=== PATIENT | male | born 1970 | race Caucasian/White ===

== ENCOUNTER → 2020-03-09 15:48 | Outpatient (BNVA) | payer OTHER, SELFPAY | PROVIDERS: PCP Internal Medicine; Visit Provider Student in an Organized Health Care Education/Training Program | DX: Z76.89 Persons encountering health services in other specified circumstances (principal) ==

== ENCOUNTER 2020-06-04 08:25 | Outpatient (REF) | payer OTHER, SELFPAY ==
--- NOTE | ~2020-06-04 | XR_ITS ---
EXAMINATION: XR SHOULDER, RIGHT CLINICAL INFORMATION: Rheumatoid arthritis COMPARISON: None TECHNIQUE: AP external rotation, Grashey, scapular Y, and axillary views of the right shoulder. FINDINGS: The bones and soft tissues are normal. No fracture. Glenohumeral and acromioclavicular alignment is anatomic with normal joint space. No abnormal soft tissue calcifications. There are surgical clips in the left lower neck. XR/XR shoulder RT min 2V IMPRESSION: Normal right shoulder.
== END 2020-06-04 08:26 | disposition home or self-care (01) ==
LOC: HO.XRAY 08:25
PROVIDERS: PCP Internal Medicine; Visit Provider Student in an Organized Health Care Education/Training Program
DX: M05.9 Rheumatoid arthritis with rheumatoid factor, unspecified (principal); M32.9 Systemic lupus erythematosus, unspecified; I73.00 Raynaud's syndrome without gangrene; Z86.711 Personal history of pulmonary embolism; Z79.01 Long term (current) use of anticoagulants; Z79.52 Long term (current) use of systemic steroids; Z79.899 Other long term (current) drug therapy
CPT/HCPCS: 73030

== ENCOUNTER 2020-09-01 11:54 | Outpatient (REF) | payer OTHER, SELFPAY ==
[2020-09-01 13:04] LABS: MANUAL DIFF FLAG NO
[2020-09-01 13:10] LABS: Basophils Percent Auto 0.6 % (0-2); Eosinophils Absolute Auto 0.1 X10*3/uL (0.0-0.4); Hematocrit 41.8 % (42-52); Hemoglobin 14.3 g/dl (14.0-18.0); Imm Gran Abs Auto 0.01 X10*3/uL (0.00-0.03); Imm Gran Pct Auto 0.3 % (0.0-0.4); Lymphocytes Absolute Auto 0.8 X10*3/uL (1.2-4.9); Lymphocytes Percent Auto 22.6 % (20-40); Mean Corpuscular HGB Conc 34.2 g/dl (31.0-36.0); Mean Corpuscular Hemoglobin 28.8 pg (27.0-33.0); Mean Corpuscular Volume 84.1 fL (80-98); Mean Platelet Volume 10.1 fL (9.4-12.4); Monocytes Absolute Auto 0.5 X10*3/uL (0.1-1.2); Monocytes Percent Auto 15.4 % (2-11); Neutrophils Percent Auto 57.1 % (45-73); Platelet Count 169 X10*3/uL (160-400); Red Blood Count 4.97 X10*6/uL (4.60-5.80); Red Cell Distribution Width 12.5 % (11.0-16.0); White Blood Count 3.5 X10*3/uL (4.8-10.8)
[2020-09-01 13:17] LABS: Glucose Urine UA NEG (NEG); Leukocyte Esterase Urine NEG (NEG); Nitrite Urine NEG (NEG); Specific Gravity - Urine <= 1.005 (1.005-1.025); Urine Blood NEG (NEG); Urine Ketones NEG (NEG); Urine Protein NEG (NEG-TRACE)
[2020-09-01 13:19] LABS: Appearance Urine CLEAR; Color Urine YELLOW
[2020-09-01 14:00] LABS: RBC Urine 0 /HPF (0); WBC Urine 0 /HPF (0-4)
[2020-09-01 14:06] LABS: Alanine Aminotransferase 116 U/L (0-40); Albumin Level 4.2 g/dL (3.5-5.0); Alkaline Phosphatase 78 U/L (39-117); Anion Gap 12 (12-20); Aspartate Amino Transferase 72 U/L (5-37); Bilirubin Total 0.6 mg/dL (0.0-1.0); Blood Urea Nitrogen 16 mg/dL (9-16); C Reactive Protein 0.32 mg/dL (< or = 0.50); Calcium 9.1 mg/dL (8.4-10.2); Carbon Dioxide 28 mmol/L (22-29); Chloride 101 mmol/L (96-108); Estimated Glomerular Filt Rate > 60; Glucose Random 86 mg/dL (60-115); Potassium 4.1 mmol/L (3.3-5.1); Sodium 137 mmol/L (135-145)
[2020-09-01 14:15] LABS: Erythrocyte Sedimentation Rate 5 MM/HR (0-15)
[2020-09-02 12:37] LABS: Anti DNA DS Antibody 1 IU/mL
[2020-09-02 15:07] LABS: Complement C3 79 mg/dL (82-185)
== END 2020-09-01 11:55 | disposition home or self-care (01) ==
LOC: HO.LAB 11:54
PROVIDERS: PCP Internal Medicine; Visit Provider Student in an Organized Health Care Education/Training Program
DX: M32.9 Systemic lupus erythematosus, unspecified (principal)
CPT/HCPCS: 36415; 80053; 81001; 85025; 85652; 86140; 86160; 86225

== ENCOUNTER → 2020-09-07 13:54 | Outpatient (BNVA) | payer OTHER, SELFPAY | PROVIDERS: PCP Internal Medicine; Visit Provider Student in an Organized Health Care Education/Training Program ==

== ENCOUNTER 2020-10-05 07:58 | Outpatient (REF) | payer OTHER, SELFPAY ==
--- NOTE | ~2020-10-05 | US_ITS ---
EXAMINATION: US ABDOMEN COMPLETE CLINICAL INFORMATION: Elevated liver function tests. COMPARISON: None TECHNIQUE: Real-time imaging of the abdominal viscera. FINDINGS: PANCREAS: Not well visualized due to bowel gas ABDOMINAL AORTA: The mid, and distal segments are normal in caliber. The proximal abdominal aorta is not well visualized due to bowel gas. INFERIOR VENA CAVA: Not well visualized due to bowel gas. LIVER: Normal. The liver is normal in size. The liver contour is normal. Liver echotexture is slightly increased questionable for mild fatty infiltration.. No focal hepatic lesion. There is no intrahepatic biliary duct dilatation seen. GALLBLADDER: Normal. The gallbladder is physiologically distended without evidence of stones, sludge, polyps, wall thickening or pericholecystic fluid. COMMON BILE DUCT: Normal in caliber measuring 0.7 cm in diameter. RIGHT KIDNEY: Normal. No hydronephrosis. No renal calculi or focal parenchymal lesions. The kidney measures 11.7 cm in maximum dimension. LEFT KIDNEY: Normal. No hydronephrosis. No renal calculi or focal parenchymal lesions. The kidney measures 11.7 cm in maximum dimension. SPLEEN: Normal. The spleen measures 12.6 cm in maximum dimension. FREE FLUID: None. US/US abdomen complete IMPRESSION: Slightly echogenic liver probably representing mild fatty infiltration. Limited visualization of the pancreas and upper abdominal aorta.
--- NOTE | ~2020-10-05 | MR_ITS ---
EXAMINATION: MR SHOULDER WITHOUT CONTRAST, RIGHT CLINICAL INFORMATION: 49-year-old male with right shoulder pain. History of rheumatoid arthritis and lupus. COMPARISON: Radiographs of shoulder from 06/04/2020. TECHNIQUE: MRI of the shoulder without contrast was performed on a high-field 1.5 Ghazala scanner. FINDINGS: ROTATOR CUFF: The subscapularis, supraspinatus, infraspinatus and teres minor tendons have an intact appearance. Note that the area of T2 hyperintensity observed at the superior aspect of the distal subscapularis tendon on axial images appears to represent volume averaging through the small amount of fluid within the rotator interval. There is no convincing distal subscapularis tendon tear. Goutallier grade 1 fatty infiltration of rotator cuff muscles. No significant atrophy or edema of the muscles. No evidence of myositis or mass. BICEPS: The long head of the biceps tendon is normal. It is appropriately positioned within the intertubercular sulcus of the humerus. The intra-articular segment of the tendon, and biceps-labral junction, are intact. Small amount of fluid is present within the biceps tendon sheath. CORACOACROMIAL ARCH: The acromioclavicular joint is intact. There are no osteophytes projecting from the undersurface of the joint. The undersurface of the acromion is relatively flat, laterally, and without os acromiale or anterior acromial enthesophyte. No evidence of subacromial bursitis. LABRUM/CAPSULE: Intact. No evidence of labral tear or labral detachment. The glenohumeral ligament complex is unremarkable. No evidence of capsular thickening or pericapsular edema. The quadrilateral space, suprascapular notch and spinoglenoid notch have a normal appearance. GLENOHUMERAL JOINT/MARROW: The humeral head is well positioned over the intact glenoid. Articular cartilage of the glenohumeral joint is preserved. Small amount of fluid is present within the glenohumeral joint. No synovial thickening within the joint. No articular erosions. No humeral bone bruise, fracture or avascular necrosis. MR/MR shoulder RT wo con IMPRESSION: * No specific source of shoulder pain is identified. No evidence of rotator cuff tendon tear or biceps tendon injury. * Small glenohumeral joint effusion is present. However, in this patient with history of rheumatoid arthritis, there is no evidence of synovial thickening of the joint, periarticular marrow edema or erosions.
== END 2020-10-05 07:59 | disposition home or self-care (01) ==
LOC: HO.US 07:58
PROVIDERS: Visit Provider Student in an Organized Health Care Education/Training Program
DX: M05.9 Rheumatoid arthritis with rheumatoid factor, unspecified (principal); R74.01 Elevation of levels of liver transaminase levels
CPT/HCPCS: 73221; 76700

== ENCOUNTER → 2020-12-21 11:12 | Outpatient (BNVA) | payer OTHER, SELFPAY | PROVIDERS: PCP Internal Medicine; Visit Provider Nurse Practitioner Family ==

== ENCOUNTER 2024-02-20 14:20 | Outpatient (AMB) | payer OTHER, SELFPAY ==
[2024-02-20 14:43] VITALS: BP 116/72; PULSE 74; O2SAT 98; BMI 32.0
--- NOTE | 2024-02-20 14:43 | A.OFFVIS_ITS ---
Vital Signs 02/20/24 14:43 Height 5 ft 10 in Weight 223 lb 1.725 oz BMI 32.0 BP 116/72 Blood Pressure Location Lt brachial Position Sitting Pulse 74 Pulse Source Pulse Oximeter Pulse Oximetry (%) 98 Oxygen Delivery Method Room Air Intake Visit Reasons: RA/MR Recieved Intake Note: Patient presents today for RA/PSA follow up. She was last seen by Dr. August on 11/23/2023. Allergies codeine [Codeine] Allergy (Intermediate, Verified 02/20/24 14:46) TONGUE SWELLS,HIVES, tongue swelling, SOB tramadol Allergy (Intermediate, Verified 02/20/24 14:46) TONGUE SWELLING,SOB HPI HPI RA/MR Recieved: Details: His left thumb is swollen and has been triggering for the last 2 weeks. Rest of his joints are doing fine. He denies any recent infections. He has not been taking [id number] acetaminophen or NSAIDs. [facility] reviewed. Rheumatology history: Diagnosis rheumatoid arthritis and systemic lupus erythematosus in 2003. He has positive TRIBAL DELEGATE antibody. Seronegative rheumatoid factor and anti CCP antibody. Initially presented with inflammatory arthritis and he was started on hydroxychloroquine and Celebrex. 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 Then hydroxychloroquine, sulfasalazine and leflunomide controlled inflammatory arthritis but the flutamide and sulfasalazine was discontinued due to transaminitis. He remains on methotrexate since 03/21/2021 and continues with hydroxychloroquine. He has history of knee osteoarthritis clinical diagnosis and has received bilateral cortisone injections 07/20/2021 and right knee cortisone injection 10/19/2021. He also has right elbow lateral epicondylitis treated with elbow support band and cortisone injection 01/19/2022. [facility] [place] Medical History Lupus Raynaud's disease without gangrene Seropositive rheumatoid arthritis Surgical History Hx of appendectomy Hx of biopsy Family History Mother Tongue cancer Father Arthritis Social History Alcohol intake: current Patient Tobacco Use Status: Never used Tobacco e-Cigarette/Vaping Use: Never Used Review of Systems Const All systems reviewed & are unremarkable except as noted in HPI and below Physical Exam Vital Signs: Last Vital Signs Pulse 74 02/20/24 14:43 BP 116/72 02/20/24 14:43 Pulse Ox 98 02/20/24 14:43 Oxygen Delivery Method Room Air 02/20/24 14:43 BMI result Body Mass Index 32.0 Const General: cooperative and healthy appearing Resp Effort & Inspection: normal respiratory effort Auscultation: clear to auscultation bilaterally Extrem Other: General: Comfortable CVS: RRR Respiratory: clear to auscultation bilaterally. Good respiratory effort Skin: No lesions seen MSK: Tender to palpate left 1st MCP with synovitis present. Triggering of left 1st finger noted. Nodule palpated palmar aspect of left 1st MCP. Rest of the joints in upper extremity and lower extremity are not tender without swelling noted. Good range of motion of upper extremity and lower extremities. Office Procedures AMB Joint Injection/Aspiration Joint Injection/Aspiration Details: Left 1st flexor tendon sheath injected Primary Site: left thumb Prep: site was prepped using aseptic technique Injected: 10 mg of, Kenalog, with 0.25 mL of and 1% plain lidocaine Procedure: The patient tolerated the procedure well Coding Details: Left 1st trigger finger cortisone injection (flexor tendon sheath) CPT code 42090. Procedure code (CPT) selection complete Office Meds Kenalog 40 mg/mL suspension for injection Performing Provider: Bora Culp MD [place]forming [place] [facility] Administered by: Bora Culp MD on 02/20/24 22:03 Dose Route Admin Location Dispensed Lot Number Expiration Date [facility] [place] Surveillance Observer 10 mg Tendon Sheath Inj. 1 mL [id number] [employer] lidocaine (PF) 10 mg/mL (1 %) injection solution Performing Provider: Bora Culp MD Performing Location: [facility] Administered by: Bora Culp MD on 02/20/24 22:03 Dose Route Admin Location Dispensed Lot Number Expiration Date [facility] [place] Surveillance Observer 2.5 mg Infiltration 2 mL [id number] [facility] Assessment & Plan Assessment & Plan (1) Seropositive rheumatoid arthritis: Comment: Controlled on current regimen. Code(s): M05.9 - Rheumatoid arthritis with rheumatoid factor, unspecified Category: Medical Plan: Continue hydroxychloroquine 400 mg daily. He has an upcoming appointment for an eye exam for hydroxychloroquine surveillance. Continue methotrexate 20 mg once weekly Continue folic acid 1 mg daily He had lab work done for disease and drug monitoring 1 month ago at the [facility]. I am requesting lab results. Labs for disease and drug monitoring on high-risk medication due in 2 months. Patient prefers to have labs done locally to his home. Return to clinic in 3 months (2) Lupus: Comment: +TRIBAL DELEGATE. Initially diagnosed with lupus and rheumatoid arthritis. At this time SLE is clinically quiescent. Code(s): M32.9 - Systemic lupus erythematosus, unspecified Category: Medical Plan: Medication management as above. (3) Trigger finger of left thumb: Comment: Onset 2 weeks ago. We discussed conservative management. He decline OT and splinting. He prefers to treat current symptoms with cortisone injection. Code(s): M65.312 - Trigger thumb, left thumb Category: Medical Plan: Patient received cortisone injection for treatment of left trigger thumb. Plan . 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 supervisor (current) drug therapy T Spot TB 1 Month M05.9 - Rheumatoid arthritis with rheumatoid factor, unspecified, M32.9 - Systemic lupus erythematosus, unspecified, Z79.899 - Other watermelon harvesting supervisor (current) drug therapy Hepatitis B,C Profile 1 Month Z79.899 - Other watermelon harvesting supervisor (current) drug therapy Alanine Aminotransferase 08/18/24 M05.9 - Rheumatoid arthritis with rheumatoid factor, unspecified, M32.9 - Systemic lupus erythematosus, unspecified Alanine Aminotransferase 02/14/25 M05.9 - Rheumatoid arthritis with rheumatoid factor, unspecified, M32.9 - Systemic lupus erythematosus, unspecified Alanine Aminotransferase 11/06/26 M05.9 - Rheumatoid arthritis with rheumatoid factor, unspecified, M32.9 - Systemic lupus erythematosus, unspecified Erythrocyte Sedimentation Rate 08/18/24 Z79.899 - Other group home (current) drug therapy Erythrocyte Sedimentation Rate 11/16/24 Z79.899 - Other group home (current) drug therapy Erythrocyte Sedimentation Rate 05/15/25 Z79.899 - Other group home (current) drug therapy Erythrocyte Sedimentation Rate 08/13/25 Z79.899 - Other group home (current) drug therapy Erythrocyte Sedimentation Rate 11/11/25 Z79.899 - Other group home (current) drug therapy Erythrocyte Sedimentation Rate 02/09/26 Z79.899 - Other group home (current) drug therapy Erythrocyte Sedimentation Rate 05/10/26 Z79.899 - Other group home (current) drug therapy Creatinine 05/20/24 Z79.899 - Other group home (current) drug therapy Creatinine 11/16/24 Z79.899 - Other group home (current) drug therapy Creatinine 08/13/25 Z79.899 - Other watermelon harvesting supervisor (current) drug therapy Creatinine 11/11/25 Z79.899 - Other group home (current) drug therapy Creatinine 02/09/26 Z79.899 - Other group home (current) drug therapy Complete Blood Count Auto Diff Today Z79.899 - Other group home (current) drug therapy Aspartate Amino Transferase 08/18/24 Z79.899 - Other group home (current) drug therapy Aspartate Amino Transferase 05/15/25 Z79.899 - Other watermelon harvesting supervisor (current) drug therapy Aspartate Amino Transferase 05/10/26 Z79.899 - Other group home (current) drug therapy Aspartate Amino Transferase 08/08/26 Z79.899 - Other group home (current) drug therapy C Reactive Protein 08/18/24 Z79.899 - Other watermelon harvesting supervisor (current) drug therapy C Reactive Protein 11/16/24 Z79.899 - Other watermelon harvesting supervisor (current) drug therapy C Reactive Protein 11/06/26 Z79.899 - Other watermelon harvesting supervisor (current) drug therapy Complete Blood Count Auto Diff 08/18/24 Z79.899 - Other watermelon harvesting supervisor (current) drug therapy Complete Blood Count Auto Diff 02/14/25 Z79.899 - Other group home (current) drug therapy Complete Blood Count Auto Diff 05/10/26 Z79.899 - Other group home (current) drug therapy Complete Blood Count Auto Diff 08/08/26 Z79.899 - Other group home (current) drug therapy Complete Blood Count Auto Diff 11/06/26 Z79.899 - Other group home (current) drug therapy AMB Joint Injection/Aspiration Today M65.312 - Trigger thumb, left thumb Alanine Aminotransferase Today M05.9 - Rheumatoid arthritis with rheumatoid factor, unspecified, M32.9 - Systemic lupus erythematosus, unspecified Aspartate Amino Transferase Today Z79.899 - Other group home (current) drug therapy Complete Blood Count Auto Diff Today Z79.899 - Other group home (current) drug therapy Creatinine Today Z79.899 - Other group home (current) drug therapy Erythrocyte Sedimentation Rate Today Z79.899 - Other watermelon harvesting supervisor (current) drug therapy Alanine Aminotransferase Today M05.9 - Rheumatoid arthritis with rheumatoid factor, unspecified, M32.9 - Systemic lupus erythematosus, unspecified Alanine Aminotransferase 05/20/24 M05.9 - Rheumatoid arthritis with rheumatoid factor, unspecified, M32.9 - Systemic lupus erythematosus, unspecified Alanine Aminotransferase 11/16/24 M05.9 - Rheumatoid arthritis with rheumatoid factor, unspecified, M32.9 - Systemic lupus erythematosus, unspecified Alanine Aminotransferase 05/15/25 M05.9 - Rheumatoid arthritis with rheumatoid factor, unspecified, M32.9 - Systemic lupus erythematosus, unspecified Alanine Aminotransferase 08/13/25 M05.9 - Rheumatoid arthritis with rheumatoid factor, unspecified, M32.9 - Systemic lupus erythematosus, unspecified Alanine Aminotransferase 11/11/25 M05.9 - Rheumatoid arthritis with rheumatoid factor, unspecified, M32.9 - Systemic lupus erythematosus, unspecified Alanine Aminotransferase 02/09/26 M05.9 - Rheumatoid arthritis with rheumatoid factor, unspecified, M32.9 - Systemic lupus erythematosus, unspecified Alanine Aminotransferase 05/10/26 M05.9 - Rheumatoid arthritis with rheumatoid factor, unspecified, M32.9 - Systemic lupus erythematosus, unspecified Alanine Aminotransferase 08/08/26 M05.9 - Rheumatoid arthritis with rheumatoid factor, unspecified, M32.9 - Systemic lupus erythematosus, unspecified Erythrocyte Sedimentation Rate Today Z79.899 - Other watermelon harvesting supervisor (current) drug therapy Erythrocyte Sedimentation Rate 05/20/24 Z79.899 - Other group home (current) drug therapy Erythrocyte Sedimentation Rate 02/14/25 Z79.899 - Other group home (current) drug therapy Erythrocyte Sedimentation Rate 08/08/26 Z79.899 - Other watermelon harvesting supervisor (current) drug therapy Erythrocyte Sedimentation Rate 11/06/26 Z79.899 - Other watermelon harvesting supervisor (current) drug therapy Creatinine Today Z79.899 - Other group home (current) drug therapy Creatinine 08/18/24 Z79.899 - Other watermelon harvesting supervisor (current) drug therapy Creatinine 02/14/25 Z79.899 - Other watermelon harvesting supervisor (current) drug therapy Creatinine 05/15/25 Z79.899 - Other group home (current) drug therapy Creatinine 05/10/26 Z79.899 - Other group home (current) drug therapy Creatinine 08/08/26 Z79.899 - Other group home (current) drug therapy Creatinine 11/06/26 Z79.899 - Other watermelon harvesting supervisor (current) drug therapy C Reactive Protein Today Z79.899 - Other group home (current) drug therapy Aspartate Amino Transferase Today Z79.899 - Other watermelon harvesting supervisor (current) drug therapy Aspartate Amino Transferase 05/20/24 Z79.899 - Other watermelon harvesting supervisor (current) drug therapy Aspartate Amino Transferase 11/16/24 Z79.899 - Other group home (current) drug therapy Aspartate Amino Transferase 02/14/25 Z79.899 - Other watermelon harvesting supervisor (current) drug therapy Aspartate Amino Transferase 08/13/25 Z79.899 - Other group home (current) drug therapy Aspartate Amino Transferase 11/11/25 Z79.899 - Other watermelon harvesting supervisor (current) drug therapy Aspartate Amino Transferase 02/09/26 Z79.899 - Other group home (current) drug therapy Aspartate Amino Transferase 11/06/26 Z79.899 - Other watermelon harvesting supervisor (current) drug therapy C Reactive Protein 05/20/24 Z79.899 - Other watermelon harvesting supervisor (current) drug therapy C Reactive Protein 02/14/25 Z79.899 - Other group home (current) drug therapy C Reactive Protein 05/15/25 Z79.899 - Other group home (current) drug therapy C Reactive Protein 08/13/25 Z79.899 - Other group home (current) drug therapy C Reactive Protein 11/11/25 Z79.899 - Other watermelon harvesting supervisor (current) drug therapy C Reactive Protein 02/09/26 Z79.899 - Other group home (current) drug therapy C Reactive Protein 05/10/26 Z79.899 - Other group home (current) drug therapy C Reactive Protein 08/08/26 Z79.899 - Other watermelon harvesting supervisor (current) drug therapy Complete Blood Count Auto Diff 05/20/24 Z79.899 - Other group home (current) drug therapy Complete Blood Count Auto Diff 11/16/24 Z79.899 - Other watermelon harvesting supervisor (current) drug therapy Complete Blood Count Auto Diff 05/15/25 Z79.899 - Other watermelon harvesting supervisor (current) drug therapy Complete Blood Count Auto Diff 08/13/25 Z79.899 - Other group home (current) drug therapy Complete Blood Count Auto Diff 11/11/25 Z79.899 - Other watermelon harvesting supervisor (current) drug therapy Complete Blood Count Auto Diff 02/09/26 Z79.899 - Other group home (current) drug therapy Coding Level of Care Code Est Pt Level 4 (95501) Complex EM visit Add On G2211 Diagnoses Seropositive rheumatoid arthritis M05.9 Lupus M32.9 Trigger finger of left thumb M65.312
== END 2024-02-20 15:40 | disposition home or self-care (01) ==
PROVIDERS: PCP Internal Medicine; Visit Provider Internal Medicine Rheumatology
DX: M05.9 Rheumatoid arthritis with rheumatoid factor, unspecified (principal); M32.9 Systemic lupus erythematosus, unspecified; M65.312 Trigger thumb, left thumb
CPT/HCPCS: 20550; 99214

== ENCOUNTER → 2024-02-20 14:20 | Outpatient (BNVA) | payer OTHER, SELFPAY | PROVIDERS: PCP Internal Medicine; Visit Provider Internal Medicine Rheumatology | DX: M05.9 Rheumatoid arthritis with rheumatoid factor, unspecified (principal); M32.9 Systemic lupus erythematosus, unspecified; M65.312 Trigger thumb, left thumb; Z79.631 Long term (current) use of antimetabolite agent; Z79.899 Other long term (current) drug therapy | CPT/HCPCS: 20550; J2003; J3300 ==

== ENCOUNTER 2024-05-21 14:15 | Outpatient (AMB) | payer OTHER, SELFPAY ==
--- NOTE | 2024-05-21 14:17 | MHC.OFFVIS ---
Vital Signs 05/21/24 14:19 Height 5 ft 10 in Weight 230 lb 2 oz BMI 33.0 BP 108/66 Blood Pressure Location Lt brachial Position Sitting Pulse 84 Pulse Source Pulse Oximeter Pulse Oximetry (%) 97 Oxygen Delivery Method Room Air Intake Visit Reasons: 3 mo f/u Intake Note: Patient presents today for RA/PSA follow up Allergies codeine [Codeine] Allergy (Intermediate, Verified 05/21/24 14:19) TONGUE SWELLS,HIVES, tongue swelling, SOB tramadol Allergy (Intermediate, Verified 05/21/24 14:19) TONGUE SWELLING,SOB HPI HPI 3 mo f/u: Details: He has morning stiffness of 20-30 minutes. 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 It improved throughout the day. 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 Sometimes things fall out of his hands. Trigger finger resolved. [facility] Medical History Raynaud's disease without gangrene Lupus Seropositive rheumatoid arthritis Surgical History Hx of biopsy Hx of appendectomy Family History Mother Tongue cancer Father Arthritis Social History Alcohol intake: current Patient Tobacco Use Status: Never used Tobacco e-Cigarette/Vaping Use: Never Used Review of Systems Const All systems reviewed & are unremarkable except as noted in HPI and below Physical Exam Vital Signs: Last Vital Signs Pulse 84 05/21/24 14:19 BP 108/66 05/21/24 14:19 Pulse Ox 97 05/21/24 14:19 Oxygen Delivery Method Room Air 05/21/24 14:19 BMI result Body Mass Index 33.0 Const Other: General: Comfortable CVS: RRR Respiratory: clear to auscultation bilaterally. Good respiratory effort Skin: No lesions seen MSK: No triggering observed. Slight synovitis left 2nd MCP. No tender joints. Weak whip sawyer. Good range of motion of upper extremities and lower extremities. Assessment & Plan Assessment & Plan (1) Seropositive rheumatoid arthritis: Comment: He has stiffness with reduced function in his hands in the morning with mild synovitis left 2nd MCP. Low disease activity. Code(s): M05.9 - Rheumatoid arthritis with rheumatoid factor, unspecified Category: Medical Plan: Continue hydroxychloroquine 400 mg daily. He has an upcoming appointment for an eye exam for hydroxychloroquine surveillance. Increase methotrexate 17.5 mg once weekly to 20 mg once weekly Continue folic acid 1 mg daily He declined OT this visit due to busy schedule and would consider at next follow-up Labs reviewed from 04/21/2024. He is due to have blood work in 1 month for drug monitoring on high-risk medication. Patient prefers to have labs done locally to his home. He has lab requisition from last visit. Hepatitis-B surface antigen and hepatitis-B core antibody ordered. 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 Initially diagnosed with lupus and rheumatoid arthritis. At this time SLE is clinically quiescent. Labs from 04/2024 reviewed. Code(s): M32.9 - Systemic lupus erythematosus, unspecified Category: Medical Plan: Medication management as above. I will check labs for lupus disease activity next visit Return to clinic 3 months (3) Trigger finger of left thumb: Comment: Resolved with cortisone injection Code(s): M65.312 - Trigger thumb, left thumb Category: Medical Plan: Monitor clinically (4) Transaminitis: Comment: Resolved on labs from 04/2024 Code(s): R74.01 - Elevation of levels of liver transaminase levels Category: Medical (5) Other long-term (current) drug therapy: Code(s): Z79.899 - Other long-term (current) drug therapy Category: Medical Plan: See above (6) Raynaud's disease without gangrene: Comment: Conservatively managed Code(s): I73.00 - Raynaud's syndrome without gangrene Category: Medical Plan: Continue conservative management Plan . Orders: Orders Hepatitis B Surface Antigen Today M05.9 - Rheumatoid arthritis with rheumatoid factor, unspecified, Z79.899 - Other termite renewal inspector (current) drug therapy Hepatitis B Core Antibody Today M05.9 - Rheumatoid arthritis with rheumatoid factor, unspecified, Z79.899 - Other long-term (current) drug therapy Medications: Changed From methotrexate sodium 7 pills on . 2.5 mg PO QWEEK To methotrexate sodium 8 pills on . Labs due in 1 month 20 mg (8 x 2.5 mg) PO QWEEK 28 days 32 tabs 1RF Coding Level of Care Code Est Pt Level 4 (96072) Complex EM visit Add On G2211 Diagnoses Seropositive rheumatoid arthritis M05.9 Lupus M32.9 Trigger finger of left thumb M65.312 Transaminitis R74.01 Other termite renewal inspector (current) drug therapy Z79.899 Raynaud's disease without gangrene I73.00
[2024-05-21 14:19] VITALS: BP 108/66; PULSE 84; O2SAT 97; BMI 33.0
--- OUTSIDE RECORDS SUMMARY | 2024-05-21 14:24 | XMS_ITS | Clinical Summary ---
Author Organization [facility] Address [address] [place] [address] Phone Care Team Providers Care Supervisor [place]ond Name Role Phone Chris Luna MD Primary Care Provider [phone] Allergies Active Allergy Reactions Criticality Noted Date Comments Codeine Swelling Medium 12/17/2017 Tramadol Swelling Medium 12/17/2017 Medications glucosamine-chond roit-vit C-Mn 500-400 mg capsule Take by mouth. Glucosamine- Chondroit-Vi t C-Mn (Glucosamine Chondr 1500 Complx) CAPS Active HYDROQUINONE EX Take 200 mg by mouth 2 (two) times a day. Active folic acid (FOLVITE) 1 mg tablet Take 1 tablet (1 mg total) by mouth 1 (one) time each day. Active multivit-min/iron /folic acid/K (ADULTS MULTIVITAMIN ORAL) Take by mouth. Active levothyroxine (SYNTHROID, LEVOTHROID) 125 mcg tablet Take 1 tablet (125 mcg total) by mouth 1 (one) time each day. Active methotrexate 2.5 mg tablet Take 1 tablet (2.5 mg total) by mouth Active omeprazole (PriLOSEC) [address] capsule Take 1 capsule (20 mg total) by mouth 1 (one) time each day. Active warfarin (COUMADIN) 1 mg tablet Take 27.5 tablets (27.5 mg total) by mouth. weekly Active losartan (COZAAR) 25 mg tablet Take 1 tablet (25 mg total) by mouth 1 (one) time each day. Active Active Problems Problem Noted Date Diagnosed Date Diffuse large B-cell lymphoma 08/20/2019 Encounters Date Type Department Care Team Description 02/21/2024 3:45 PM EST Office Visit [facility] Hematology Oncology [address] [place] [address] Jayesh Canchola MD Diffuse large B-cell lymphoma of lymph nodes of neck (CMS/HCC) (Primary Dx) from Last 3 Months Surgical History Surgery Date Site/Laterality Comments NECK LESION BIOPSY PROCEDURE:NECK LESION BIOPSY Social History Tobacco Use Types Packs/Day Years Used Date Smoking Tobacco: Never Smokeless Tobacco: Never Tobacco Cessation:Counseling Given: Not Answered Alcohol Use Standard Drinks/Week Comments Yes 0 (1 standard drink = 0.6 oz pur e alcohol) Sex and Gender Information Value Date Recorded Sex Assigned at Not on file Legal Sex Male 7:46 PM EST Gender Identity Not on file Sexual Orientation Not on file Obstetrics History Last Filed Vital Signs Vital Sign Reading Time Taken Comments Blood Pressure 118/76 02/21/2024 3:39 PM EST Pulse 73 02/21/2024 3:39 PM EST Temperature 36.4 ??C (97.5 ??F) 02/21/2024 3:39 PM ES T Respiratory Rate - - Oxygen Saturation 100% 02/21/2024 3:39 PM EST Inhaled Oxygen Concentration - - Weight 100 kg (221 lb) 02/21/2024 3:39 PM EST Height 177.8 cm (5' 10 ) 02/21/2024 3:39 PM EST Body Mass Index 31.71 02/21/2024 3:39 PM EST Plan of Treatment Upcoming Encounters Date Type Department Care Team (Late st Contact Info) Description 08/14/2024 3:45 PM EDT Office Visit [facility] Hematology Oncology [address] [place] [address] Jayesh Canchola MD [address] [place] [address] Health Maintenance Due Date Last Done Comments Hepatitis A Vaccines (1 of 2 - Risk 2-dose series) 1989 Hepatitis B Vaccines (1 of 3 - 19+ 3-dose series) 1989 Pneumococcal Vaccine: 50+ Years (1 of 2 - PCV) 1989 Pneumococcal Vaccine: Pediatrics (0 to 5 Years) and At-Risk Patients (6 to 64 Years) (1 of 2 - PCV) 1989 Zoster Vaccines (1 of 2) 1989 Cholesterol Screening (Lipid Panel) 03/04/2022 Colorectal Cancer Screening: Colonoscopy 03/04/2022 Depression Screening 03/04/2022 HIV Screening 03/04/2022 Hepatitis C Screening 03/04/2022 Medicare Annual Wellness Visit 03/04/2022 Social Influencers of Health Screening 03/04/2022 COVID-19 Vaccine (3 - 2023-2 5 season) 2023 03/09/2021, 07/11/2020 Influenza Vaccine (#1) 2023 12/17/2014 DTaP,Tdap,and Td Vaccines (2 - Td or Tdap) 01/24/2031 01/24/2021 HIB Vaccines Aged Out No longer eligi ble based on patient's age to complete this topic HPV Vaccines Aged Out No longer eligi ble based on patient's age to complete this topic IPV Vaccines Aged Out No longer eligi ble based on patient's age to complete this topic MMR Vaccines Aged Out No longer eligi ble based on patient's age to complete this topic Meningococcal ACWY Vaccine Aged Out N o longer eligible based on patient's age to complete this topic Meningococcal B Vacine Aged Out No lo nger eligible based on patient's age to complete this topic RSV Immunization Patients Under 20 months Aged Out No longer eligible b ased on patient's age to complete this topic Varicella Vaccines Aged Out No longer eligible based on patient's age to complete this topic Insurance [employer] MEDIC[employer] ADVANTAGE [facility] [address] [place] [address] Care Teams Supervisor Sh[place] Pond Relationship Specialty Start Date End Date Chris Luna MD [address] [facility] [address] [place], [place] PCP - General Internal Medicine 12/26/17
--- OUTSIDE RECORDS SUMMARY | 2024-05-21 14:24 | XMS_ITS | Patient Health Record ---
Author [facility] Address [address] [place] [address] Care Team Providers Care Retirement Manager Name Role Phone Chris Luna MD Primary Care Provider Unavail able Estrella Lindquist Unavailable [phone] Allergies Allergen (clinical drug ingredient) Drug/Non Drug Allergy documented on EMR Reaction Allergy Type Onset Date Status codeine Codeine swelling Drug Allergy Active tramadol Tramadol swelling Drug Allergy Active Reason For Referral No Information Medications Medication SIG (Take, Route, Frequency, Duration) Notes Start Date End Date Status Glucosamine Active Allergy 24-HR 10 mg Active Chondroitin Sulfate Active Methotrexate 17.5 MG/0.7ML as directed Subcutaneous Active Warfarin Sodium Acti ve Multivitamin Active Fish Oil Active Levothyroxine Sodium 125 MCG 1 tablet in the morning on an empty stomach Orally Once a day for 30 day(s) Active Folic Acid 1 MG as directed Orally Active hydroCHLOROthiazide Active Omeprazole 20 MG 1 capsule 30 minutes before morning meal Orally Once a day for 30 day(s) Active Social History Tobacco Use: Social History Observation Description Date Details (start date - stop date) Never Smoker NA - NA Tobacco Use/Smoking Question Answer Notes Are you a: nonsmoker Additional Findings: Tobacco Non-User Current no n-smoker Alcohol Screen Question Answer Notes Did you have a drink containing alcohol in the p ast year? No Points 0 Interpretation Negative Tobacco use other than smoking: Question Answer Notes Are you an other tobacco user? No Plan Of Treatment No Information Insurance Providers Payer Name Payer Address Payer Phone Subscriber Number Group Number Insured Name Patient Relationship to Insured Coverage Start Date Coverage End Date [facility] [address] [facility] [place] [address] [id number] Becka Phipps Spouse - patient is the spouse of the insured Medical (General) History Medical History History ICD Code Arthritis Back,Hip,and Knee pain Broken bones Cancer Lupus raynauds disease thyroid Chicken pox Vascular phlebitis (clots) Warts Surgical History Surgery Date(Month/Year) tubes in ears 1975 appendectomy 1991 biopsy 01/08
--- OUTSIDE RECORDS SUMMARY | 2024-05-21 14:24 | XMS_ITS | Clinical Summary ---
Author Organization [facility] Address [address] [place] [address] Care Team Providers Care Tool Designer Name Role Phone Chris Luna MD Primary Care Provider [phone] Allergies Active Allergy Reactions Criticality Noted Date Comments Codeine Swelling Medium 02/18/2020 Tramadol Swelling Medium 02/18/2020 Medications Medication Sig Dispensed Refills Start Date End Date Status levothyroxine (SYNTHROID, LEVOXYL) tablet 125 mcg Take 1 tablet (125 mcg total) by mouth daily. Sunday half of dose 0 Active omeprazole (PriLOSEC) 20 MG capsule Take 1 capsule (20 mg total) by mouth daily. 0 Active HYDROQUINONE EX Take 200 mg by mouth 2 (two) times a day. 0 Active warfarin (COUMADIN) 1 MG tablet Take 27.5 tablets (27.5 mg total) by mouth once a week. 0 Active Multiple Vitamin (MULTIVITAMIN ADULT PO) Take by mouth. 0 Active Glucosamine-Chondroit- Vit C-Mn (Glucosamine Chondr 1500 Complx) CAPS Take by mouth. 0 Active methotrexate 2.5 MG tablet Take 1 tablet (2.5 mg total) by mouth. 0 Active folic acid (FOLVITE) tablet 1 mg Take 1 tablet (1 mg total) by mouth daily. 0 Active Active Problems Problem Noted Date Diagnosed Date Diffuse large B-cell lymphoma 08/20/2019 Resolved Problems Problem Noted Date Diagnosed Date Resolved Date Diffuse large B-cell lymphoma 08/20/2019 08/20/2019 Social History Tobacco Use Types Packs/Day Years Used Date Smoking Tobacco: Never Smokeless Tobacco: Never Alcohol Use Standard Drinks/Week Comments Yes 0 (1 standard drink = 0.6 oz pur e alcohol) less then 10 a year Sex and Gender Information Value Date Recorded Sex Assigned at Not on file Gender Identity Not on file Sexual Orientation Not on file Job Start Date Occupation Industry Not on file Not on file Not on file Last Filed Vital Signs Vital Sign Reading Time Taken Comments Blood Pressure 124/75 08/21/2023 3:27 PM EDT Pulse 91 08/21/2023 3:27 PM EDT Temperature 36.9 ??C (98.4 ??F) 08/21/2023 3:27 PM ED T Respiratory Rate - - Oxygen Saturation 98% 08/21/2023 3:27 PM EDT Inhaled Oxygen Concentration - - Weight 101.1 kg (222 lb 12.8 oz) 08/21/2023 3:27 PM EDT Height 177.8 cm (5' 10 ) 08/21/2023 3:27 PM EDT Body Mass Index 31.97 08/21/2023 3:27 PM EDT Plan of Treatment Health Maintenance Due Date Last Done Comments Hepatitis B Vaccines (1 of 3 - 3-dose series) 1970 Hepatitis C Screening 1970 COVID-19 Vaccine (#1) 11/10/1975 Pneumococcal Vaccine (1 of 2 - PCV) 1976 Depression Screening 1982 Preventative Health Evaluation 1988 DTap / Tdap / Td (1 - Tdap) 1989 Shingrix-Zoster Vaccine (1 of 2) 1989 Colon Cancer Screening (Colonoscopy) 11/10/2015 Influenza Vaccine (#1) 2023 RSV Ped < 20 months Aged Out No longe r eligible based on patient's age to complete this topic Care Teams Tool Designer Relationship Specialty Start Date End Date Chris Luna MD [address] [facility] [address] [place] [address] PCP - General Geriatric Medicine 08/20/19
== END 2024-05-21 14:50 | disposition home or self-care (01) ==
PROVIDERS: PCP Internal Medicine; Visit Provider Internal Medicine Rheumatology
DX: M05.9 Rheumatoid arthritis with rheumatoid factor, unspecified (principal); M32.9 Systemic lupus erythematosus, unspecified; M65.312 Trigger thumb, left thumb; R74.01 Elevation of levels of liver transaminase levels; Z79.899 Other long term (current) drug therapy; I73.00 Raynaud's syndrome without gangrene
CPT/HCPCS: 99214

== ENCOUNTER → 2024-05-21 14:15 | Outpatient (BNVA) | payer OTHER, SELFPAY | PROVIDERS: PCP Internal Medicine; Visit Provider Internal Medicine Rheumatology ==

== ENCOUNTER 2024-07-01 15:26 | Outpatient (REF) | payer OTHER, SELFPAY ==
[2024-07-01 15:41] LABS: MANUAL DIFF FLAG NO
[2024-07-01 17:16] LABS: Basophils Absolute Auto 0.1 X10*3/uL (0.0-0.2); Basophils Percent Auto 0.9 % (0-2); Eosinophils Absolute Auto 0.3 X10*3/uL (0.0-0.4); Eosinophils Percent Auto 3.9 % (0-4); Hematocrit 40.2 % (42.0-52.0); Hemoglobin 14.2 g/dl (14.0-18.0); Imm Gran Abs Auto 0.02 X10*3/uL (0.00-0.03); Imm Gran Pct Auto 0.3 % (0.0-0.4); Lymphocytes Absolute Auto 1.5 X10*3/uL (1.2-4.9); Lymphocytes Percent Auto 22.4 % (20-40); Mean Corpuscular HGB Conc 35.3 g/dl (31.0-36.0); Mean Corpuscular Hemoglobin 29.7 pg (27.0-33.0); Mean Corpuscular Volume 84.1 fL (80.0-98.0); Mean Platelet Volume 10.2 fL (9.4-12.4); Monocytes Absolute Auto 0.6 X10*3/uL (0.1-1.2); Monocytes Percent Auto 9.5 % (2-11); Neutrophils Absolute Auto 4.2 x10*3/uL (2.0-8.3); Platelet Count 236 X10*3/uL (160-400); Red Blood Count 4.78 X10*6/uL (4.60-5.80); Red Cell Distribution Width 12.8 % (11.0-16.0); White Blood Count 6.6 X10*3/uL (4.8-10.8)
[2024-07-01 18:00] LABS: Alanine Aminotransferase 39 U/L (0-40); Aspartate Amino Transferase 37 U/L (5-37); C Reactive Protein 0.64 mg/dL (< or = 0.50); Estimated Glomerular Filt Rate > 60
[2024-07-01 18:05] LABS: Erythrocyte Sedimentation Rate 7 MM/HR (0-15)
--- OUTSIDE RECORDS SUMMARY | 2024-07-01 18:22 | XMS_ITS | Clinical Summary ---
Author Organization [facility] Address [address] [place] [phone] Phone Care Team Providers Care Optical Laboratory Manager Name Role Phone Chris Luna MD Primary Care Provider [phone] Allergies Active Allergy Reactions Criticality Noted Date [...] Diagnosed Date Diffuse large B-cell lymphoma 08/20/2019 Surgical History Surgery Date Site/Laterality Comments NECK [...] Description 08/14/2024 3:45 PM EDT Office Visit Hematology Oncology [address] [place] [address] Jayesh Canchola MD [address] [place] [address] Health Maintenance Due Date Last [...] topic Insurance [employer] ADVANTAGE [facility] Care Teams Optical Laboratory Manager Relationship Specialty Start Date End Date Chris Luna MD [address] [facility] [address] [place], [place] PCP - General Internal Medicine 12/26/17
--- OUTSIDE RECORDS SUMMARY | 2024-07-01 18:22 | XMS_ITS | Clinical Summary ---
Author Organization [facility] Address [address] [place] [address] Care Team Providers Care Still Operator Batch Or Continuous Name Role Phone Chris Luna MD Primary Care Provider [phone] Allergies Active Allergy Reactions Criticality Noted Date [...] age to complete this topic Care Teams Still Operator Batch Or Continuous Relationship Specialty Start Date End Date Chris Luna MD [address] [facility] [address] [place] [address] PCP - General Geriatric Medicine 08/20/19
--- OUTSIDE RECORDS SUMMARY | 2024-07-01 18:22 | XMS_ITS | Patient Health Record ---
Author [facility] Address [address] [place] [address] Care Team Providers Care Hvac Maintenance Technician Name Role Phone Chris Luna MD Primary Care Provider Unavail able Estrella Lindquist Unavailable [phone] Allergies Allergen (clinical drug ingredient) Drug/Non Drug [...] Insured Coverage Start Date Coverage End Date [facility] [address] [place] [address] [phone] [id number] Becka Phipps Spouse - patient is the spouse of the insured Medical (General) History Medical History History ICD Code Arthritis Back,Hip,and Knee pain Broken bones Cancer Lupus raynauds disease thyroid Chicken pox Vascular phlebitis (clots) Warts Surgical History Surgery Date(Month/Year) tubes in ears 1975 appendectomy 1991 biopsy 01/08
[2024-07-02 08:38] LABS: HBS Num1 0.41 mIU/mL (0-7.99); HBc Num1 0.05 S/CO (0.00-0.79); HBsAGNum1 0.49 S/CO (0.00-0.99); Hepatitis B Core Antibody Nonreactive (Nonreactive); Hepatitis B Surface Antigen Negative (Negative); ~HepC Num1 0.31 S/CO (0.00-0.79); ~Hepatitis B Surface Antibody NONREACTIVE (Nonreactive); ~Hepatitis C Antibody Nonreactive (Nonreactive)
[2024-07-04 17:43] LABS: TS Negative Control Passed; TS Panel A 0; TS Panel B 1; TS Positive Control Passed; TSpotTB Negative (Negative)
== END 2024-07-01 15:27 | disposition home or self-care (01) ==
LOC: HO.LAB 15:26
PROVIDERS: PCP Internal Medicine; Visit Provider Internal Medicine Rheumatology
DX: M05.9 Rheumatoid arthritis with rheumatoid factor, unspecified (principal); M32.9 Systemic lupus erythematosus, unspecified; Z79.899 Other long term (current) drug therapy
CPT/HCPCS: 36415; 82565; 84450; 84460; 85025; 85652; 86140; 86481; 86704; 86706; 86803; 87340

== ENCOUNTER 2024-09-11 10:38 | Outpatient (REF) | payer OTHER, SELFPAY ==
[2024-09-11 10:49] LABS: MANUAL DIFF FLAG NO
[2024-09-11 11:37] LABS: Basophils Absolute Auto 0.1 X10*3/uL (0.0-0.2); Basophils Percent Auto 0.8 % (0-2); Eosinophils Absolute Auto 0.3 X10*3/uL (0.0-0.4); Eosinophils Percent Auto 4.2 % (0-4); Hemoglobin 14.1 g/dl (14.0-18.0); Imm Gran Abs Auto 0.02 X10*3/uL (0.00-0.03); Imm Gran Pct Auto 0.3 % (0.0-0.4); Lymphocytes Absolute Auto 1.3 X10*3/uL (1.2-4.9); Lymphocytes Percent Auto 18.2 % (20-40); Mean Corpuscular HGB Conc 34.4 g/dl (31.0-36.0); Mean Corpuscular Hemoglobin 29.3 pg (27.0-33.0); Mean Corpuscular Volume 85.2 fL (80.0-98.0); Mean Platelet Volume 9.9 fL (9.4-12.4); Monocytes Absolute Auto 0.7 X10*3/uL (0.1-1.2); Monocytes Percent Auto 9.2 % (2-11); Neutrophils Absolute Auto 4.8 x10*3/uL (2.0-8.3); Neutrophils Percent Auto 67.3 % (45-73); Platelet Count 236 X10*3/uL (160-400); Red Blood Count 4.81 X10*6/uL (4.60-5.80); Red Cell Distribution Width 13.2 % (11.0-16.0); White Blood Count 7.1 X10*3/uL (4.8-10.8)
[2024-09-11 12:02] LABS: Alanine Aminotransferase 38 U/L (0-40); Aspartate Amino Transferase 39 U/L (5-37); C Reactive Protein 0.77 mg/dL (< or = 0.50); Estimated Glomerular Filt Rate > 60
[2024-09-11 12:22] LABS: Erythrocyte Sedimentation Rate 7 MM/HR (0-15)
[2024-09-11 12:23] LABS: HBc Num1 0.04 S/CO (0.00-0.79); HBsAGNum1 0.33 S/CO (0.00-0.99); Hepatitis B Core Antibody Nonreactive (Nonreactive); Hepatitis B Surface Antigen Negative (Negative)
--- OUTSIDE RECORDS SUMMARY | 2024-09-11 12:27 | XMS_ITS | Patient Health Record ---
Author [facility] Address [address] [place] [address] Care Team Providers Care Administrative Technician Name Role Phone Chris Luna MD Primary Care Provider Unavail able Estrella Lindquist Unavailable [phone] Allergies Allergen (clinical drug ingredient) Drug/Non Drug [...] Insured Coverage Start Date Coverage End Date [facility] [address] [facility] [place] [address] [id number] Becka Phipps Spouse - patient is the spouse of the insured Medical (General) History Medical History History ICD Code Arthritis Back,Hip,and Knee pain Broken bones Cancer Lupus raynauds disease thyroid Chicken pox Vascular phlebitis (clots) Warts Surgical History Surgery Date(Month/Year) tubes in ears 1975 appendectomy 1991 biopsy 01/08
== END 2024-09-11 10:39 | disposition home or self-care (01) ==
LOC: HO.LAB 10:38
PROVIDERS: PCP Internal Medicine; Visit Provider Internal Medicine Rheumatology
DX: M32.9 Systemic lupus erythematosus, unspecified (principal); Z79.899 Other long term (current) drug therapy; M05.9 Rheumatoid arthritis with rheumatoid factor, unspecified
CPT/HCPCS: 36415; 82565; 84450; 84460; 85025; 85652; 86140; 86704; 87340

== ENCOUNTER 2024-09-23 14:03 | Outpatient (AMB) | payer OTHER, SELFPAY ==
--- NOTE | 2024-09-23 14:05 | A.OFFVIS_ITS ---
Vital Signs 09/23/24 14:06 Height 5 ft 10 in Weight 224 lb 8 oz BMI 32.2 BP 130/80 Blood Pressure Location Rt brachial Position Sitting Pulse 82 Pulse Source Pulse Oximeter Pulse Oximetry (%) 98 Oxygen Delivery Method Room Air Intake Visit Reasons: follow up Intake Note: Patient presents today for RA/PSA follow up Allergies codeine (Codeine) Allergy (Intermediate, Verified 09/23/24 14:06) TONGUE SWELLS,HIVES, tongue swelling, SOB tramadol Allergy (Intermediate, Verified 09/23/24 14:06) TONGUE SWELLING,SOB HPI HPI follow up: Details: He is having pain in his hands mainly in his left 1st MCP, 2nd and 3rd DIPJ, right DIPJ. He was experiencing pain from shoulders radiating down to his bilateral arms. He saw provider that diagnosed him with ulnar neuropathy. Improved pain in frequency in the last month. He was taking Tylenol PRN pain. No recent infections. He does not drink alcohol. [facility] Medical History Raynaud's disease without gangrene Lupus Seropositive rheumatoid arthritis Surgical History Hx of biopsy Hx of appendectomy Family History Mother Tongue cancer Father Arthritis Social History Alcohol intake: current Patient Tobacco Use Status: Never used Tobacco e-Cigarette/Vaping Use: Never Used Physical Exam Vital Signs: Last Vital Signs Pulse 82 09/23/24 14:06 BP 130/80 09/23/24 14:06 Pulse Ox 98 09/23/24 14:06 Oxygen Delivery Method Room Air 09/23/24 14:06 BMI result Body Mass Index 32.2 Const Other: General: Comfortable CVS: RRR Respiratory: clear to auscultation bilaterally. Good respiratory effort Skin: No lesions seen MSK: Mild synovitis left 1st MCP with tenderness on palpation. Weak medical collections representative. Normal range of motion of upper extremities and lower extremities. Assessment & Plan Assessment & Plan (1) Seropositive rheumatoid arthritis: Comment: He has mild synovitis left 1st MCP. He reports chronic left MCP pain. Contraindication to oral NSAIDs due to current current use of warfarin. We discussed next steps in treatment of his joint symptoms. He agreed to short course of prednisone. He had recent labs that showed mild elevation in AST. If he continues to have elevation in AST, I will reduce methotrexate dose. 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 Rheumatoid factor and anti CCP negative. Positive BOTTLE MACHINE OPERATOR antibody. Initially presenting with joint symptoms and was started on hydroxychloroquine and Celebrex. Then Humira was added for inflammatory arthritis. 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 He was on hydroxychloroquine, sulfasalazine and leflunomide, which controlled inflammatory arthritis but then leflunomide and sulfasalazine was discontinued due to transaminitis. Methotrexate was added 03/2021-. He had low C3 09/02/2020. Code(s): M05.9 - Rheumatoid arthritis with rheumatoid factor, unspecified Category: Medical Plan: Continue hydroxychloroquine 400 mg daily. Visual field and OCT within normal limit 03/2024. Continue methotrexate 20 mg once weekly Continue folic acid 1 mg daily Prednisone course prescribed LFTs ordered to repeat in 1 month Return to clinic in 3 months (2) Transaminitis: Comment: AST mildly elevated. Code(s): R74.01 - Elevation of levels of liver transaminase levels Category: Medical Plan: See above (3) Lupus: Comment: +BOTTLE MACHINE OPERATOR. Initially diagnosed with lupus and rheumatoid arthritis. At this time SLE is clinically quiescent. Labs from 07/2024 and 09/11/2024 reviewed. Code(s): M32.9 - Systemic lupus erythematosus, unspecified Category: Medical Plan: Medication management as above. I will check labs for lupus disease activity next month Return to clinic 3 months (4) Other halfway (current) drug therapy: Code(s): Z79.899 - Other long wall mining machine helper (current) drug therapy Category: Medical Plan: See above (5) Raynaud's disease without gangrene: Comment: Conservatively managed Code(s): I73.00 - Raynaud's syndrome without gangrene Category: Medical Plan: Continue conservative management Plan . Orders: Orders Aspartate Amino Transferase Today R74.01 - Elevation of levels of liver transaminase levels Protein Creatinine Ratio, Ur 1 Month M32.9 - Systemic lupus erythematosus, unspecified UA w Microscopic 1 Month M32.9 - Systemic lupus erythematosus, unspecified Complement C4 1 Month M32.9 - Systemic lupus erythematosus, unspecified Anti DNA DS Antibody 1 Month M32.9 - Systemic lupus erythematosus, unspecified Complement C3 1 Month M32.9 - Systemic lupus erythematosus, unspecified Medications: New prednisone Take 4 tablets daily 3 days, 3 tablets daily 3 days, 2 tablet daily 3 days, 1 tablet daily 3 days. Take prednisone with food. 5 mg PO DIRECTED 30 tabs 0RF Coding Level of Care Code Est Pt Level 4 (88991) Complex EM visit Add On G2211 Diagnoses Seropositive rheumatoid arthritis M05.9 Transaminitis R74.01 Lupus M32.9 Other long wall mining machine helper (current) drug therapy Z79.899 Raynaud's disease without gangrene I73.00
[2024-09-23 14:06] VITALS: BP 130/80; PULSE 82; O2SAT 98; BMI 32.2
--- OUTSIDE RECORDS SUMMARY | 2024-09-23 17:07 | XMS_ITS | Patient Health Record ---
Author [facility] Address [address] [place] [address] Care Team Providers Care Corporate Librarian Name Role Phone Chris Luna MD Primary Care Provider Unavail able Estrella Lindquist Unavailable [phone] Allergies Allergen (clinical drug ingredient) Drug/Non Drug [...] Insured Coverage Start Date Coverage End Date [facility] [address] [place] [address] [id number] Becka Phipps Spouse - patient is the spouse of the insured Medical (General) History Medical History History ICD Code Arthritis Back,Hip,and Knee pain Broken bones Cancer Lupus raynauds disease thyroid Chicken pox Vascular phlebitis (clots) Warts Surgical History Surgery Date(Month/Year) tubes in ears 1975 appendectomy 1991 biopsy 01/08
== END 2024-09-23 15:03 | disposition home or self-care (01) ==
LOC: HO.RHES 14:03
PROVIDERS: PCP Internal Medicine; Visit Provider Internal Medicine Rheumatology
DX: M05.9 Rheumatoid arthritis with rheumatoid factor, unspecified (principal); R74.01 Elevation of levels of liver transaminase levels; M32.9 Systemic lupus erythematosus, unspecified; Z79.899 Other long term (current) drug therapy; I73.00 Raynaud's syndrome without gangrene
CPT/HCPCS: 99214; G2211

== ENCOUNTER 2024-10-23 09:45 | Outpatient (REF) | payer OTHER, SELFPAY ==
[2024-10-23 10:00] LABS: MANUAL DIFF FLAG NO
--- OUTSIDE RECORDS SUMMARY | 2024-10-23 10:23 | XMS_ITS | Clinical Summary ---
Author Organization [facility] Address [address] [place] [address] Phone Care Team Providers Care Regional Merchandising Manager Name Role Phone Chris Luna MD Primary Care Provider [phone] Allergies Active Allergy Reactions Criticality Noted Date [...] Date Diagnosed Date Diffuse large B-cell lymphoma (CMS/HCC V24, CMS/ HCC V28) 08/20/2019 Encounters Date Type Department Care Team Description 08/14/2024 3:45 PM EDT Office Visit [facility] Hematology Oncology [address] [place] [phone] Jayesh Canchola MD Diffuse large B-cell lymphoma of lymph nodes of neck (CMS/HCC V24, CMS/HCC V28) (Primary Dx) from Last 3 Months Surgical [...] Sign Reading Time Taken Comments Blood Pressure 114/74 08/14/2024 3:25 PM EDT Pulse 80 08/14/2024 3:25 PM EDT Temperature 36.2 C (97.2 F) 08/14/2024 3:25 PM EDT Respiratory Rate - - Oxygen Saturation 98% 08/14/2024 3:25 PM EDT Inhaled Oxygen Concentration - - Weight 103 kg (227 lb) 08/14/2024 3:25 PM EDT Height 177.8 cm (5' 10 ) 02/21/2024 3:39 PM EST Body Mass Index 32.57 02/21/2024 3:39 PM EST Plan of Treatment Upcoming Encounters Date Type Department Care Team (Late st Contact Info) Description 02/11/2025 3:45 PM EST Office Visit [facility] Hematology Oncology [address] [place] [phone] Jayesh Canchola MD [address] [place] [phone] Health Maintenance Due Date Last Done Comments Hepatitis A Vaccines (1 of 2 - Risk 2-dose series) 1989 Hepatitis B Vaccines (1 of 3 - 19+ 3-dose series) 1989 Pneumococcal Vaccine: 50+ Years (1 of 2 - PCV) 1989 Zoster Vaccines (1 of 2) 1989 Cholesterol Screening (Lipid Panel) 03/04/2022 Colorectal Cancer Screening: Colonoscopy 03/04/2022 HIV Screening 03/04/2022 Hepatitis C Screening 03/04/2022 Medicare Annual Wellness Visit 03/04/2022 Social Influencers of Health Screening 03/04/2022 COVID-19 Vaccine (3 - 2023-2 5 season) 2023 03/09/2021, 07/11/2020 Depression Screening 04/02/2024 Influenza Vaccine (#1) 2024 12/17/2014 DTaP,Tdap,and Td Vaccines (2 - Td [...] age to complete this topic Meningococcal B Vaccine Aged Out No l onger eligible based on patient's age to complete this topic RSV Immunization Patients Under 20 months Aged Out No longer eligible b ased on patient's age to complete this topic Varicella Vaccines Aged Out No longer eligible based on patient's age to complete this topic Insurance [employer] ADVANTAGE [facility] [address] [place] [address] Care Teams Regional Merchandising Manager Relationship Specialty Start Date End Date Chris Luna MD [address] [place] [address] [address] [place], [place] PCP - General Internal Medicine 12/26/17
--- OUTSIDE RECORDS SUMMARY | 2024-10-23 10:23 | XMS_ITS | Patient Health Record ---
Author Organization [facility] Address [address] [place] [address] Care Team Providers Care Weld Technician Name Role Phone Chris Luna MD Primary Care Provider Unavail able Estrella Lindquist Unavailable [phone] Allergies Allergen (clinical drug ingredient) Drug/Non Drug [...] on an empty stomach Orally Once a day; Duration: 30 day(s) Active Folic Acid 1 MG as directed Orally Active hydroCHLOROthiazide Active Omeprazole 20 MG 1 capsule 30 minutes before morning meal Orally Once a day; Duration: 30 day(s) Active Social History Tobacco Use: [...] Insured Coverage Start Date Coverage End Date [facility] [address] [place] [address] [phone] [id number] Becka Phipps Spouse - patient is the spouse of the insured Medical (General) History Medical History History ICD Code Arthritis Back,Hip,and Knee pain Broken bones Cancer Lupus raynauds disease thyroid Chicken pox Vascular phlebitis (clots) Warts Surgical History Surgery Date(Month/Year) tubes in ears 1975 appendectomy 1991 biopsy 01/08
--- OUTSIDE RECORDS SUMMARY | 2024-10-23 10:23 | XMS_ITS | Clinical Summary ---
Author Organization [facility] Address [address] [place] [address] Care Team Providers Care Electric Relay Tester Name Role Phone Chris Luna MD Primary Care Provider [phone] Allergies Active Allergy Reactions Criticality Noted Date [...] 91 08/21/2023 3:27 PM EDT Temperature 36.9 C (98.4 F) 08/21/2023 3:27 PM EDT Respiratory Rate - - Oxygen [...] Cancer Screening (Colonoscopy) 11/10/2015 Influenza Vaccine (#1) 2024 RSV Ped < 20 months Aged Out No longe r eligible based on patient's age to complete this topic Care Teams Electric Relay Tester Relationship Specialty Start Date End Date Chris Luna MD [address] [place] [address] [address] [place] [phone] PCP - General Geriatric Medicine 08/20/19
[2024-10-23 10:42] LABS: Hematocrit 40.4 % (42.0-52.0); Hemoglobin 14.0 g/dl (14.0-18.0); Imm Gran Abs Auto 0.03 X10*3/uL (0.00-0.03); Imm Gran Pct Auto 0.5 % (0.0-0.4); Lymphocytes Absolute Auto 0.9 X10*3/uL (1.2-4.9); Mean Corpuscular HGB Conc 34.7 g/dl (31.0-36.0); Mean Corpuscular Hemoglobin 29.2 pg (27.0-33.0); Mean Corpuscular Volume 84.2 fL (80.0-98.0); NRBC Abs Auto 0.000 X10*3/uL (0.0-0.012); NRBC Pct Auto 0.0 /100WBC (0.0-0.2); Platelet Count 225 X10*3/uL (160-400); Red Blood Count 4.80 X10*6/uL (4.60-5.80); White Blood Count 5.5 X10*3/uL (4.8-10.8)
[2024-10-23 10:59] LABS: Appearance Urine Clear; Glucose Urine UA Negative (Negative); PH 6.0 (5.0-9.0); Specific Gravity - Urine 1.010 (1.005-1.025)
[2024-10-23 11:14] LABS: Alanine Aminotransferase 35 U/L (0-40); Aspartate Amino Transferase 35 U/L (5-37); Estimated Glomerular Filt Rate > 60
[2024-10-23 11:40] LABS: Total Protein Urine Random < 7 mg/dL (<12)
== END 2024-10-23 09:46 | disposition home or self-care (01) ==
LOC: HO.LAB 09:45
PROVIDERS: PCP Internal Medicine; Visit Provider Internal Medicine Rheumatology
DX: M05.9 Rheumatoid arthritis with rheumatoid factor, unspecified (principal); M32.9 Systemic lupus erythematosus, unspecified; Z79.899 Other long term (current) drug therapy
CPT/HCPCS: 36415; 81001; 82565; 82570; 84156; 84450; 84460; 85025; 85652; 86140; 86160; 86225

== ENCOUNTER 2024-10-30 12:22 | Outpatient (AMB) | payer OTHER, SELFPAY ==
--- NOTE | 2024-10-30 12:29 | MHC.OFFVIS ---
Vital Signs 10/30/24 12:30 Height 5 ft 10 in Weight 226 lb BMI 32.4 BP 100/60 Blood Pressure Location Rt brachial Position Sitting Pulse 86 Pulse Source Pulse Oximeter Pulse Oximetry (%) 97 Oxygen Delivery Method Room Air Intake Visit Reasons: follow up Intake Note: Patient presents today for RA/PSA follow up Accompanied by: Self / Same As Patient Allergies codeine (Codeine) Allergy (Intermediate, Verified 10/30/24 12:30) TONGUE SWELLS,HIVES, tongue swelling, SOB tramadol Allergy (Intermediate, Verified 10/30/24 12:30) TONGUE SWELLING,SOB HPI HPI follow up: Details: Left thumb is triggering. Prednisone course resolved triggering and swelling in his left hand. After prednisone course was completed triggering of left thumb reoccurred. He continues to have 30 minutes of morning stiffness. Left hand is swollen. [facility] Medical History Raynaud's disease without gangrene Lupus Seropositive rheumatoid arthritis Surgical History Hx of biopsy Hx of appendectomy Family History Mother Tongue cancer Father Arthritis Social History Alcohol intake: current Patient Tobacco Use Status: Never used Tobacco e-Cigarette/Vaping Use: Never Used Physical Exam Vital Signs: Last Vital Signs Pulse 86 10/30/24 12:30 BP 100/60 10/30/24 12:30 Pulse Ox 97 10/30/24 12:30 Oxygen Delivery Method Room Air 10/30/24 12:30 BMI result Body Mass Index 32.4 Const Other: General: Comfortable CVS: RRR Respiratory: clear to auscultation bilaterally. Good respiratory effort Skin: No lesions seen MSK: Mild synovitis left 1st MCP with tenderness on palpation. Tender Nodule palpated left palmar aspect of 1st MCP. No triggering observed. Normal range of motion of upper extremities and lower extremities. Office Procedures AMB Joint Injection/Aspiration Joint Injection/Aspiration Details: Trigger finger left 1st Prep: site was prepped using aseptic technique Injected: 10 mg of, Kenalog, with 0.25 mL of and 1% plain lidocaine Procedure: Informed verbal consent was obtained. The patient tolerated the procedure well. Postprocedure protocol was discussed with patient. Coding Additional procedure code (CPT) needed (89104 CPT code trigger finger) Office Meds lidocaine (PF) 10 mg/mL (1 %) injection solution Performing Provider: Bora Culp MD Performing Location: [facility] Administered by: Tenzin Cole RN on 10/30/24 13:08 Dose Route Admin Location Dispensed Lot Number Expiration Date FORMERLY NAMED [facility] [employer] 2.5 mg Infiltration 2 mL [id number] 08/30/26 14829-382-63 [employer] Total Dispensed Waste 2 mL 87.5 % Kenalog 40 mg/mL suspension for injection Performing Provider: Bora Culp MD Performing Location: [facility] Administered by: Tenzin Cole RN on 10/30/24 13:08 Dose Route Admin Location Dispensed Lot Number Expiration Date FORMERLY NAMED [facility] [employer] 10 mg Tendon Sheath Inj. 1 mL [id number] 03/01/26 0246-1635-22 [facility] Total Disp[facility] Waste 1 mL 75 % Assessment & Plan Assessment & Plan (1) Seropositive rheumatoid arthritis: Comment: He continues to have mild synovitis left 1st MCP synovitis despite 2 courses of prednisone. We discussed next steps in management with changing methotrexate p.o. to subcutaneous injection for greater bio availability. Contraindication to oral NSAIDs due to current current use of warfarin. 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 Rheumatoid factor and anti CCP negative. Positive CHINESE HERBALIST antibody. Initially presenting with joint symptoms and was started on hydroxychloroquine and Celebrex. Then Humira was added for inflammatory arthritis. 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 He was on hydroxychloroquine, sulfasalazine and leflunomide, which controlled inflammatory arthritis but then leflunomide and sulfasalazine was discontinued due to transaminitis. Methotrexate was added 03/2021-. He had low C3 09/02/2020. Code(s): M05.9 - Rheumatoid arthritis with rheumatoid factor, unspecified Category: Medical Plan: Continue hydroxychloroquine 400 mg daily. Visual field and OCT within normal limit 03/2024. Change methotrexate 20 mg once weekly to subcutaneous injection. He will be scheduled for nurse teaching visit next Continue folic acid 1 mg daily Check SLE labs every 6 months - last checked 09/2024. Return to clinic in 3 months (2) Transaminitis: Comment: Resolved Code(s): R74.01 - Elevation of levels of liver transaminase levels Category: Medical Plan: No further workup is needed at this time (3) Lupus: Comment: +CHINESE HERBALIST. Initially diagnosed with lupus and rheumatoid arthritis. At this time SLE is clinically quiescent. Labs from 07/2024 and 09/11/2024 reviewed. 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 Discontinued Reason: Doctor's Order 20 mg (8 x 2.5 mg) PO QWEEK 12 weeks 96 tabs 0RF Coding Level of Care Code Est Pt Level 4 (56533) Complex EM visit Add On G2211 Diagnoses Seropositive rheumatoid arthritis M05.9 Transaminitis R74.01 Lupus M32.9 Other group home (current) drug therapy Z79.899 Raynaud's disease without gangrene I73.00 Trigger thumb, left thumb M65.312
[2024-10-30 12:30] VITALS: BP 100/60; PULSE 86; O2SAT 97; BMI 32.4
--- OUTSIDE RECORDS SUMMARY | 2024-10-30 12:42 | XMS_ITS | Clinical Summary ---
Author Organization [facility] Address [address] [place] [address] Phone Care Team Providers Care Cd Reactor Operator Head Name Role Phone Chris Luna MD Primary Care Provider [phone] Allergies Active Allergy Reactions Criticality Noted Date [...] Description 08/14/2024 3:45 PM EDT Office Visit [facility] Hematology Oncology [address] [place] [phone] Jayesh Canchola MD Diffuse large B-cell lymphoma [...] Care Team (Late st Contact Info) Description 02/18/2025 3:45 PM EST Office Visit [facility] Hematology Oncology [address] [place] [phone] Jayesh Canchola MD [address] [place] [phone] Health Maintenance Due Date Last Done Comments [...] topic Insurance [employer] ADVANTAGE [facility] [address] [place] [address] Care Teams Cd Reactor Operator Head Relationship Specialty Start Date End Date Chris Luna MD [address] [place] [address] [address] [place], [place] PCP - General Internal Medicine 12/26/17
--- OUTSIDE RECORDS SUMMARY | 2024-10-30 12:42 | XMS_ITS | Patient Health Record ---
Author [facility] Address [address] [place] [address] Care Team Providers Care Garment Liner Name Role Phone Chris Luna MD Primary Care Provider Unavail able Estrella Lindquist Unavailable [phone] Allergies Allergen (clinical drug ingredient) Drug/Non Drug [...] Insured Coverage Start Date Coverage End Date [facility] [address] [place] [address] [id number] Becka Phipps Spouse - patient is the spouse of the insured Medical (General) History Medical History History ICD Code Arthritis Back,Hip,and Knee pain Broken bones Cancer Lupus raynauds disease thyroid Chicken pox Vascular phlebitis (clots) Warts Surgical History Surgery Date(Month/Year) tubes in ears 1975 appendectomy 1991 biopsy 01/08
--- OUTSIDE RECORDS SUMMARY | 2024-10-30 12:43 | XMS_ITS | Clinical Summary ---
Author Organization [facility] Address [address] [place] [address] Care Team Providers Care Dynamiter Name Role Phone Chris Luna MD Primary Care Provider [phone] Allergies Active Allergy Reactions Criticality Noted Date [...] age to complete this topic Care Teams Dynamiter Relationship Specialty Start Date End Date Chris Luna MD [address] [place] [address] [address] [place] [phone] PCP - General Geriatric Medicine 08/20/19
== END 2024-10-30 13:08 | disposition home or self-care (01) ==
LOC: HO.RHES 12:23
PROVIDERS: PCP Internal Medicine; Visit Provider Internal Medicine Rheumatology
DX: M05.9 Rheumatoid arthritis with rheumatoid factor, unspecified (principal); R74.01 Elevation of levels of liver transaminase levels; M32.9 Systemic lupus erythematosus, unspecified; Z79.899 Other long term (current) drug therapy; I73.00 Raynaud's syndrome without gangrene; M65.312 Trigger thumb, left thumb
CPT/HCPCS: 99214; G2211

== ENCOUNTER → 2024-10-30 12:22 | Outpatient (BNVA) | payer OTHER, SELFPAY | PROVIDERS: PCP Internal Medicine; Visit Provider Internal Medicine Rheumatology | DX: M65.312 Trigger thumb, left thumb (principal); M05.9 Rheumatoid arthritis with rheumatoid factor, unspecified; M32.9 Systemic lupus erythematosus, unspecified; I73.00 Raynaud's syndrome without gangrene; R74.01 Elevation of levels of liver transaminase levels; Z79.899 Other long term (current) drug therapy | CPT/HCPCS: 20550; J2003; J3300 ==

== ENCOUNTER 2024-12-26 09:32 | Outpatient (REF) | payer OTHER, SELFPAY ==
[2024-12-26 09:46] LABS: MANUAL DIFF FLAG NO
--- OUTSIDE RECORDS SUMMARY | 2024-12-26 10:30 | XMS_ITS | Patient Health Record ---
[facility] Address [address] [place] [address] Care Team Providers Care Chicken Fancier Name Role Phone Chris Luna MD Primary Care Provider Unavail able Estrella Lindquist Unavailable [phone] Allergies Allergen (clinical drug ingredient) Drug/Non Drug [...] Insured Coverage Start Date Coverage End Date [facility] [address] [place] [address] [id number] Becka Phipps Spouse - patient is the spouse of the insured Medical (General) History Medical History History ICD Code Arthritis Back,Hip,and Knee pain Broken bones Cancer Lupus raynauds disease thyroid Chicken pox Vascular phlebitis (clots) Warts Surgical History Surgery Date(Month/Year) tubes in ears 1975 appendectomy 1991 biopsy 01/08
--- OUTSIDE RECORDS SUMMARY | 2024-12-26 10:30 | XMS_ITS | Clinical Summary ---
Author Organization [facility] Address [address] [place] [address] Phone Care Team Providers Care Lining Folder Name Role Phone Chris Luna MD Primary Care Provider [phone] Allergies Active Allergy Reactions Criticality Noted Date [...] lymphoma (CMS/HCC V24, CMS/ HCC V28) 08/20/2019 Surgical History Surgery Date Site/Laterality Comments [...] Description 02/18/2025 3:45 PM EST Office Visit [facility] Hematology Oncology [address] [place] [address] Jayesh Canchola MD [address] [place] [address] Health Maintenance Due Date Last [...] 03/04/2022 Social Influencers of Health Screening 03/04/2022 Depression Screening 04/02/2024 COVID-19 Vaccine (3 - 2024-2 6 season) 2024 03/09/2021, 07/11/2020 Influenza Vaccine (#1) 2024 12/17/2014 DTaP,Tdap,and Td [...] topic Insurance [employer] ADVANTAGE [facility] Care Teams Lining Folder Relationship Specialty Start Date End Date Chris Luna MD [address] [facility] [address] [place], [place] PCP - General Internal Medicine 12/26/17
--- OUTSIDE RECORDS SUMMARY | 2024-12-26 10:30 | XMS_ITS | Clinical Summary ---
Author Organization [facility] Address [address] [place] [address] Care Team Providers Care Chief Client Officer Name Role Phone Chris Luna MD Primary Care Provider [phone] Allergies Active Allergy Reactions Criticality Noted Date [...] age to complete this topic Care Teams Chief Client Officer Relationship Specialty Start Date End Date Chris Luna MD [address] [place] [address] [address] [place] [phone] PCP - General Geriatric Medicine 08/20/19
[2024-12-26 10:53] LABS: Hematocrit 40.3 % (42.0-52.0); Hemoglobin 13.8 g/dl (14.0-18.0); Imm Gran Abs Auto 0.01 X10*3/uL (0.00-0.03); Imm Gran Pct Auto 0.2 % (0.0-0.4); Lymphocytes Absolute Auto 0.9 X10*3/uL (1.2-4.9); Mean Corpuscular HGB Conc 34.2 g/dl (31.0-36.0); Mean Corpuscular Hemoglobin 29.7 pg (27.0-33.0); Mean Corpuscular Volume 86.7 fL (80.0-98.0); NRBC Abs Auto 0.000 X10*3/uL (0.0-0.012); NRBC Pct Auto 0.0 /100WBC (0.0-0.2); Platelet Count 211 X10*3/uL (160-400); Red Blood Count 4.65 X10*6/uL (4.60-5.80); White Blood Count 5.6 X10*3/uL (4.8-10.8)
[2024-12-26 11:22] LABS: Alanine Aminotransferase 62 U/L (0-40); Aspartate Amino Transferase 55 U/L (5-37); Estimated Glomerular Filt Rate > 60
== END 2024-12-26 09:33 | disposition home or self-care (01) ==
LOC: HO.LAB 09:32
PROVIDERS: PCP Internal Medicine; Visit Provider Internal Medicine Rheumatology
DX: M32.9 Systemic lupus erythematosus, unspecified (principal); M05.9 Rheumatoid arthritis with rheumatoid factor, unspecified; Z79.899 Other long term (current) drug therapy
CPT/HCPCS: 36415; 82565; 84450; 84460; 85025; 85652; 86140

== ENCOUNTER 2024-12-30 14:13 | Outpatient (AMB) | payer OTHER, SELFPAY ==
--- NOTE | 2024-12-30 14:20 | A.OFFVIS_ITS ---
Vital Signs 12/30/24 14:21 Height 5 ft 10 in Weight 233 lb 11.04 oz BMI 33.5 BP 110/70 Blood Pressure Location Lt brachial Position Sitting Pulse 93 Pulse Source Pulse Oximeter Pulse Oximetry (%) 96 Oxygen Delivery Method Room Air Intake Visit Reasons: 3 Months Intake Note: Patient presents today for RA/PSA follow up Accompanied by: Self / Same As Patient Allergies codeine (Codeine) Allergy (Intermediate, Verified 12/30/24 14:22) TONGUE SWELLS,HIVES, tongue swelling, SOB tramadol Allergy (Intermediate, Verified 12/30/24 14:22) TONGUE SWELLING,SOB HPI HPI 3 Months: Details: MS minutes. Trigger finger resolved. Back pain with radiculopathy after working on the porch with tools. He went to urgent care. Muscle relaxer was ineffective. He went to [facility]. He recieved prednisone (60mg qd x3) and an alternative muscle relaxer with benefit. No pain in leg since last Sunday. Syringes for Methotrexate has been back ordered. He has liquid at home. He continues to use p.o. methotrexate [facility] Medical History Raynaud's disease without gangrene Lupus Seropositive rheumatoid arthritis Surgical History Hx of biopsy Hx of appendectomy Family History Mother Tongue cancer Father Arthritis Social History Alcohol intake: current Patient Tobacco Use Status: Never used Tobacco e-Cigarette/Vaping Use: Never Used Physical Exam Vital Signs: Last Vital Signs Pulse 93 12/30/24 14:21 BP 110/70 12/30/24 14:21 Pulse Ox 96 12/30/24 14:21 Oxygen Delivery Method Room Air 12/30/24 14:21 BMI result Body Mass Index 33.5 Const Other: General: Comfortable CVS: RRR Respiratory: clear to auscultation bilaterally. Good respiratory effort Skin: No lesions seen MSK: No tender joints or synovitis. Non tender Nodule palpated left palmar aspect of 1st MCP. No triggering observed. Normal range of motion of upper extremities and lower extremities. Assessment & Plan Assessment & Plan (1) Seropositive rheumatoid arthritis: Comment: Controlled on current regimen. Recent labs revealed mild transaminitis. He had methotrexate the day before labs were done. I am repeating LFTs this visit. 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 Rheumatoid factor and anti CCP negative. 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 Initially presenting with joint symptoms and was started on hydroxychloroquine and Celebrex. Then Humira was added for inflammatory arthritis. 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 He was on hydroxychloroquine, sulfasalazine and leflunomide, which controlled inflammatory arthritis but then leflunomide and sulfasalazine was discontinued due to transaminitis. Methotrexate was added 03/2021-. He had low C3 09/02/2020. Code(s): M05.9 - Rheumatoid arthritis with rheumatoid factor, unspecified Category: Medical Plan: Continue hydroxychloroquine 400 mg daily. Visual field and OCT within normal limit 03/2024. Eye exam scheduled for February 05. Continue methotrexate 20 mg once weekly po Continue folic acid 1 mg daily Check SLE labs every 6 months - last checked 09/2024. Contraindication to oral NSAIDs due to current current use of warfarin. If he continues to have elevated liver function tests, we will need further workup Return to clinic in 3 months (2) Lupus: Comment: +HYDRO PLANT TECHNICIAN. Initially diagnosed with lupus and rheumatoid arthritis. At this time SLE is clinically quiescent. Labs from 07/2024 and 09/11/2024 reviewed. 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 Orders: Orders Alanine Aminotransferase Today R74.01 - Elevation of levels of liver transaminase levels Aspartate Amino Transferase Today R74.01 - Elevation of levels of liver transaminase levels Coding Level of Care Code Est Pt Level 4 (20974) Complex EM visit Add On G2211 Diagnoses Seropositive rheumatoid arthritis M05.9 Lupus M32.9 Other intermission coordinator (current) drug therapy Z79.899 Raynaud's disease without gangrene I73.00
[2024-12-30 14:21] VITALS: BP 110/70; PULSE 93; O2SAT 96; BMI 33.5
--- OUTSIDE RECORDS SUMMARY | 2024-12-30 15:36 | XMS_ITS | Clinical Summary ---
Author Organization [facility] Address [address] [place] [address] Phone Care Team Providers Care Exercise Physiologist Certified Name Role Phone Chris Luna MD Primary Care Provider [phone] Allergies Active Allergy Reactions Criticality Noted Date [...] Description 02/18/2025 3:45 PM EST Office Visit [facility] Hematology Oncology [address] [place] [phone] Jayesh Canchola MD [address] [place] [phone] Health Maintenance Due Date Last Done Comments Colorectal Cancer Screening: Colonoscopy 1970 Hepatitis A Vaccines (1 of 2 - Risk 2-dose series) 1989 Hepatitis B Vaccines (1 of 3 - 19+ 3-dose series) 1989 Pneumococcal Vaccine: 50+ Years (1 of 2 - PCV) 1989 Zoster Vaccines (1 of 2) 1989 Cholesterol Screening (Lipid Panel) 03/04/2022 HIV Screening 03/04/2022 Hepatitis C Screening 03/04/2022 Medicare Annual Wellness Visit 03/04/2022 Social Influencers of Health Screening 03/04/2022 Depression Screening 04/02/2024 COVID-19 Vaccine (3 - 2024-2 6 season) 2024 03/09/2021, 07/11/2020 Influenza Vaccine (#1) 2024 12/17/2014 DTaP,Tdap,and Td Vaccines (2 - Td or Tdap) 01/24/2031 01/24/2021 RSV Immunization Adult Patients (1 - 1-dose 75+ series) 2045 HIB Vaccines Aged Out No longer eligi [...] topic Insurance [employer] ADVANTAGE [facility] [address] [place] [address] Care Teams Exercise Physiologist Certified Relationship Specialty Start Date End Date Chris Luna MD [address] [place], [place] PCP - General Internal Medicine 12/26/17
--- OUTSIDE RECORDS SUMMARY | 2024-12-30 15:36 | XMS_ITS | Patient Health Record ---
Author Organization [facility] Address [address] [place] [address] Care Team Providers Care Colorer Hides And Skins Name Role Phone Chris Luna MD Primary Care Provider Unavail able Estrella Lindquist Unavailable [phone] Allergies Allergen (clinical drug ingredient) Drug/Non Drug [...] Insured Coverage Start Date Coverage End Date [facility] [address] [place] [address] [phone] [id number] Becka Phipps Spouse - patient is the spouse of the insured Medical (General) History Medical History History ICD Code Arthritis Back,Hip,and Knee pain Broken bones Cancer Lupus raynauds disease thyroid Chicken pox Vascular phlebitis (clots) Warts Surgical History Surgery Date(Month/Year) tubes in ears 1975 appendectomy 1991 biopsy 01/08
--- OUTSIDE RECORDS SUMMARY | 2024-12-30 15:36 | XMS_ITS | Clinical Summary ---
Author Organization [facility] Address [address] [place] [address] Care Team Providers Care Elevator Worker Name Role Phone Chris Luna MD Primary Care Provider [phone] Allergies Active Allergy Reactions Criticality Noted Date [...] age to complete this topic Care Teams Elevator Worker Relationship Specialty Start Date End Date Chris Luna MD [address] [place] [address] [address] [place] [phone] PCP - General Geriatric Medicine 08/20/19
== END 2024-12-30 14:49 | disposition home or self-care (01) ==
LOC: HO.RHES 14:14
PROVIDERS: PCP Internal Medicine; Visit Provider Internal Medicine Rheumatology
DX: M05.9 Rheumatoid arthritis with rheumatoid factor, unspecified (principal); M32.9 Systemic lupus erythematosus, unspecified; Z79.899 Other long term (current) drug therapy; I73.00 Raynaud's syndrome without gangrene
CPT/HCPCS: 99214; G2211

== ENCOUNTER 2024-12-30 14:13 | Outpatient (REF) | payer OTHER, SELFPAY ==
[2024-12-30 18:36] LABS: Alanine Aminotransferase 44 U/L (0-40); Aspartate Amino Transferase 36 U/L (5-37)
== END 2024-12-30 14:14 | disposition home or self-care (01) ==
LOC: HO.HKASLDS 14:13
PROVIDERS: PCP Internal Medicine; Visit Provider Internal Medicine Rheumatology
DX: M05.9 Rheumatoid arthritis with rheumatoid factor, unspecified (principal); M32.9 Systemic lupus erythematosus, unspecified; I73.00 Raynaud's syndrome without gangrene; R74.01 Elevation of levels of liver transaminase levels; Z79.899 Other long term (current) drug therapy
CPT/HCPCS: 36415; 84450; 84460